=== PATIENT | female | born 1975 | race Caucasian/White ===

== ENCOUNTER 2016-09-07 19:15 | Emergency (ER) | payer OTHER ==
[~2016-09-07] VITALS: Ht 157.5 cm; Wt 49.9 kg
--- NOTE | 2016-09-07 20:44 | ED THROAT/DENTAL COMPLAINT ---
History of Present Illness General Chief Complaint: General Adult Stated Complaint: + for strep AND DEHYDRATED, Source: patient, family Exam Limitations: no limitations Vital Signs & Intake/Output Vital Signs & Intake/Output Vital Signs Date Time Temp Pulse Resp B/P B/P Pulse O2 O2 Flow FiO2 Mean Ox Delivery Rate 09/07 2050 97 09/07 2048 99.1 09/07 2048 99.1 91 18 106/60 97 Room Air 09/07 1929 101.7 09/07 1922 101.7 123 18 124/85 95 Room Air Allergies Coded Allergies: Penicillins (GI UPSET 09/07/16) Triage Note: PT SENT TO ED FROM [facility] FOR "IV HYDRATION AND ANTIBIOTICS" AFTER HAVING A POS STREP TEST THERE. TEMP 101.7 IN TRIAGE. TOOK IBUPROFIN AT 1700. BP 124/85. HR 123 Triage Nurses Notes Reviewed? yes : No Patient currently breastfeeds: No HPI: This patient is a 40-year-old female who presented to the emergency department today sent up here by an urgent care center for evaluation of a positive strep swab. The patient reported that last night she started having a sore throat. Pain is up to 7 out of 10, sharp, nonradiating. She reported fevers and chills. She reported vomiting 1 with no blood in the vomitus. She reported associated nausea. She reported that the pain has been worsening today. She had a positive strep swab at the urgent care center, and they told that she can come up to the emergency department for further evaluation. The patient reported that she is able to drink fluids without any difficulty. Requesting antibiotics to go home with. (SAHARA LANGFORD,NANCY) Reconcile Medications Azithromycin 250 MG TABLET 1 DP PO AD STREP PHARYNGITIS 2 the first day followed by 1 for days 2-5 [MAGIC MOUTHWASH] 15 ML ORAL.SUSP 1-2 TSP PO TID PRN SORE THROAT SWISH AND SWALLOW 1/3 BENADRYL 1/3 LIDOCAINE 1/3 MAALOX (GREGORY FOUNTAIN,MELBA) Past History Travel History Traveled to [place] past 21 day No Medical History Any Pertinent Medical History? see below for history Neurological: NONE EENT: NONE Cardiovascular: NONE Respiratory: NONE Gastrointestinal: NONE Hepatic: NONE Renal: NONE Musculoskeletal: NONE Psychiatric: NONE Endocrine: NONE Surgical History Surgical History: non-contributory Psychosocial History What is your primary language Tajik Tobacco Use: Never used ETOH Use: denies use Illicit Drug Use: denies illicit drug use Family History Hx Contributory? No (NANCY SHOEMAKER PA-C) Review of Systems Review of Systems Constitutional: Reports: see HPI. EENTM: Reports: see HPI. Respiratory: Reports: no symptoms. Cardiovascular: Reports: no symptoms. GI: Reports: see HPI. Musculoskeletal: Reports: no symptoms. Skin: Reports: no symptoms. Neurological/Psychological: Reports: no symptoms. All Other Systems: Reviewed and Negative (NANCY SHOEMAKER PA-C) Physical Exam Physical Exam Mouth/Throat: PHARYNGEAL INJECTION WITH NO ORAL PHARYNGEAL LESIONS OR EDEMA. nO TONSILLAR EXUDATES. nO UVULAR SHIFT OR UVULAR EDEMA. nO MANDIBULAR OR MAXILLARY EDEMA. nO TRISMUS OR DROOLING Comments: Well-developed well-nourished person in no acute distress HEENT: Normal EENT exam, head normocephalic, moist mucous memory and Neck: Supple with bilateral, nontender submandibular lymphadenopathy Back: Normal gait Cardiovascular: Tachycardic with regular rhythm and no murmurs Respiratory: No respiratory distress. Breath sounds clear to auscultation bilaterally Extremity: Normal and equal pulses Neuro: Alert oriented x3, motor sensory normal, cranial nerves II through XII grossly intact. Skin: No appreciable rash on exposed skin, skin is warm and clammy Psych: Mood and affect is normal, memory and judgment is normal. Core Measures ACS in differential dx? No Severe Sepsis Present: No Septic Shock Present: No (NANCY SHOEMAKER PA-C) Progress Differential Diagnosis: Ludwigs angina, meningitis, odontogenic abscess, kathia- tonsillar abscess, strep pharyngitis Plan of Care: Current Medications Sig/Anderson Start time Last Medication Dose Stop Time Status Admin Azithromycin 500 MG ONCE ONE 09/07 2044 UNVr 09/07 (Zithromax) 09/07 Departure Departure Disposition: HOME OR SELF CARE Condition: Stable Clinical Impression Primary Impression: Strep pharyngitis Referrals: NANCY BECKHAM MD (PCP/Family) Additional Instructions: Please take antibiotic as prescribed and for the full duration. Be sure to stay hydrated. Use Magic mouthwash as directed: Swish and swallow. You may take [id number] ibuprofen or Tylenol for fevers. Please rest. Return for any worsening symptoms or concerns. Departure Forms: Customer Survey General Discharge Information Prescriptions: Current Visit Scripts Azithromycin 1 DP PO AD #6 TAB 2 the first day followed by 1 for days 2-5 [MAGIC MOUTHWASH] 1-2 TSP PO TID PRN SORE THROAT #150 ML SWISH AND SWALLOW 1/3 BENADRYL 1/3 LIDOCAINE 1/3 MAALOX (SAHARA LANGFORD,NANCY) PA/COMMISSIONS SPECIALIST Co-Sign Statement Statement: ED Attending supervision documentation- [] I saw and evaluated the patient. I have also reviewed all the pertinent lab results and diagnostic results. I agree with the findings and the plan of care as documented in the PA's/COMMISSIONS SPECIALIST's documentation. x I have reviewed the ED Record and agree with the PA's/COMMISSIONS SPECIALIST's documentation. [] Additions or exceptions (if any) to the PAs/COMMISSIONS SPECIALIST's note and plan are summarized below: [] (GREGORY FOUNTAIN,MELBA)
[2016-09-07 20:49] VITALS: BP 106/60
[2016-09-07] MEDS ORDERED: MAGIC MOUTHWASH PO (20:51)
[2016-09-07] MEDS ORDERED: AZITHROMYCIN250 M1 PO (20:51)
== END 2016-09-07 20:55 ==
LOC: ERH 19:15
DX: J02.0 Streptococcal pharyngitis (principal)
CPT/HCPCS: J0456